=== PATIENT | female | born 1975 | race African-American/Black ===

== ENCOUNTER 2018-01-17 01:43 | Emergency (ER) | payer OTHER ==
[~2018-01-17] VITALS: Ht 165.1 cm; Wt 59.0 kg
[~2018-01-17 01:43] MED LIST: AUGMENTIN 875-1 EACH PO; AUGMENTIN 875875 M1 PO; CIPRO250 M1 PO; CIPROFLOXACIN500 M1 PO; CLONAZEPAM 1 MG1 M1; CYCLOBENZAPRINE10 MG; FLAGYL500 MG PO; FLEXERIL PO; LUNESTA3 MG PO; NORCO 5-325 TA1 EACH PO; PRISTIQ; PRISTIQ100 MG PO; SYNTHROID75 MCG; ULTRAM 50MG TAB50 MG PO; [UNRECOGNIZED DRUG - REMARK]; [UNRECOGNIZED DRUG - REMARK]
[2018-01-17] MEDS ORDERED: TRAMADOL 50 MG50 MG PO (04:22)
[2018-01-17] MEDS ORDERED: NORFLEX100 MG PO (04:22)
[2018-01-17] MEDS ORDERED: NAPROSYN500 MG PO (04:22)
[2018-01-17 05:26] VITALS: BP 123/68
== END 2018-01-17 04:35 | disposition home or self-care (01) ==
LOC: ER 01:43
DX: S49.92XA Unspecified injury of left shoulder and upper arm, initial encounter (principal); S13.4XXA Sprain of ligaments of cervical spine, initial encounter; F17.210 Nicotine dependence, cigarettes, uncomplicated; W01.0XXA Fall on same level from slipping, tripping and stumbling without subsequent striking against object, initial encounter; Y93.89 Activity, other specified; Y92.89 Other specified places as the place of occurrence of the external cause; Y99.2 Volunteer activity